=== PATIENT | female | born 1975 | race Caucasian/White ===

== ENCOUNTER 2018-08-15 12:23 | Emergency (ER) | payer OTHER ==
[2018-08-15 12:28] VITALS: BP 155/84; PULSE 100; RESP 18; TEMP 98.7; O2SAT 100
--- NOTE | 2018-08-15 13:10 | C.PDOC ---
History Of Present Illness 43 y/o female presents to the ED complaining of feeling pains all over her chest for a while which is associated with her heart racing. She reports episodes are intermittent and occasionally associated with SOB. Patient describes being anxious and stressed due to her mother being diagnosed with multiple myeloma in the last year. Otherwise she denies any hallucinations or SI/HI. No recent travel. No syncope or other complaints. Patient has no chest pain at present. Time Seen by Provider: 08/15/18 12:30 Chief Complaint (Nursing): Anxiety History Per: Patient History/Exam Limitations: no limitations Onset/Duration Of Symptoms: Intermittent Episodes Current Symptoms Are (Timing): Gone Associated Symptoms: Anxiety Past Medical History Reviewed: Historical Data, Nursing Documentation, Vital Signs Vital Signs: Last Vital Signs Temp 98.7 F 08/15/18 12:26 Pulse 100 H 08/15/18 12:26 Resp 18 08/15/18 12:26 BP 155/84 H 08/15/18 12:26 Pulse Ox 100 08/15/18 12:26 - Medical History PMH: No Chronic Diseases Surgical History: No Surg Hx Family History: States: Unknown Family Hx - Social History Hx Tobacco Use: No Hx Alcohol Use: No Hx Substance Use: No - Immunization History Hx Tetanus Toxoid Vaccination: No Hx Influenza Vaccination: No Hx Pneumococcal Vaccination: No Review Of Systems Except As Marked, All Systems Reviewed And Found Negative. Constitutional: Negative for: Fever, Chills Eyes: Negative for: Vision Change Cardiovascular: Negative for: Chest Pain, Palpitations Respiratory: Positive for: Shortness of Breath Gastrointestinal: Negative for: Nausea, Vomiting, Diarrhea Neurological: Negative for: Headache, Dizziness Psych: Positive for: Anxiety Physical Exam - Physical Exam Appears: Well, Non-toxic, No Acute Distress, Other (Speaking in complete sentences) Skin: Warm, Dry Head: Atraumatic, Normacephalic Eye(s): bilateral: Normal Inspection Oral Mucosa: Moist Neck: Normal ROM Chest: Symmetrical Cardiovascular: Rhythm Regular, No Murmur Respiratory: Normal Breath Sounds, No Accessory Muscle Use, No Wheezing, Other (Good air entry, normal inspiratory effort) Gastrointestinal/Abdominal: Soft, No Tenderness, No Distention Extremity: Bilateral: Atraumatic, Normal Color And Temperature Pulses: Left Radial: Normal, Right Radial: Normal Neurological/Psych: Oriented x3, Normal Speech ED Course And Treatment O2 Sat by Pulse Oximetry: 100 (RA) Pulse Ox Interpretation: Normal Medical Decision Making Medical Decision Making: Impression: Anxiety Plan: Patient remains AAOx3 with clear speech, no acute distress. Plan is to d/c patient home with outpatient management, resources provided. Patient given Rx for Hydroxyzine. Disposition Counseled Patient/Family Regarding: Studies Performed, Diagnosis, Need For Followup - Disposition Referrals: [facility] [Outside] [facility] [Outside] Disposition: HOME/ ROUTINE Disposition Time: 13:08 Condition: GOOD Additional Instructions: KAYLEEN JOSUE, thank you for letting us take care of you today. Your provider was Elaine Tyler MD and you were treated for COUGHING/SOB. The emergency medical care you received today was directed at your acute symptoms. If you were prescribed any medication, please fill it and take as directed. It may take several days for your symptoms to resolve. Return to the Emergency Department if your symptoms worsen, do not improve, or if you have any other problems. Please contact your doctor or call one of the physicians/clinics you have been referred to that are listed on the Patient Visit Information form that is included in your discharge packet. Bring any paperwork you were given at discharge with you along with any medications you are taking to your follow up visit. Our treatment cannot replace ongoing medical care by a primary care provider outside of the emergency department. Thank you for allowing the [facility] team to be part of your care today. Prescriptions: Hydroxyzine HCl 25 mg PO TID PRN #30 tablet PRN Reason: Anxiety Instructions: Anxiety, Adult (DC) Forms: C2FO (Czech), General Discharge Instructions - POA Present On Arrival: None - Clinical Impression Clinical Impression: Anxiety - Scribe Statement The provider has reviewed the documentation as recorded by the Yuniibfrancy [place] Provider Attestation: All medical record entries made by the [facility] were at my direction and personally dictated by me. I have reviewed the chart and agree that the record accurately reflects my personal performance of the history, physical exam, medical decision making, and the department course for this patient. I have also personally directed, reviewed, and agree with the discharge instructions and disposition.
== END 2018-08-15 13:30 | disposition home or self-care (01) ==
LOC: C.ER 12:23
DX: F41.9 Anxiety disorder, unspecified (principal)